=== PATIENT | female | born 1945 | race Caucasian/White ===

== ENCOUNTER 2017-11-09 11:18 | Outpatient (CLI) | payer MEDICARE, OTHER ==
--- NOTE | 2017-11-09 12:04 | XRAY Report ---
Procedure Date: 11/09/2017 Accession Number: [id number] / [id number] Procedure: XR - Sacrum/Coccyx CPT Code: FULL RESULT: EXAM: SACRUM AND COCCYX RADIOGRAPHY EXAM DATE: 11/09/2017 11:44 AM. HISTORY: Persistent pain after fall. COMPARISONS: None. TECHNIQUE: 3 views. FINDINGS: Alignment: Normal. The sacrum and coccyx are normally aligned. Bones: Normal. No fracture or bone lesion. Joints: Minimal bilateral hip joint space narrowing with marginal lipping. Unremarkable SI joints and pubic symphysis. Lower lumbar degenerative changes. Soft Tissues: Small calcified uterine leiomyoma. IMPRESSION: No acute disease. RADIA
--- NOTE | 2017-11-09 12:06 | XRAY Report ---
Procedure Date: 11/09/2017 Accession Number: [id number] / [id number] Procedure: XR - Hip w/Pelvis 2-3V LT CPT Code: FULL RESULT: EXAM: LEFT HIP AND PELVIS RADIOGRAPHY EXAM DATE: 11/09/2017 11:44 AM. HISTORY: Persistent pain after fall. COMPARISONS: None. TECHNIQUE: 1 view of the pelvis and 1 view of the hip. FINDINGS: Bones: Osteopenia. No definite fracture or other bone lesion. Joints: Mild hip joint space narrowing with marginal lipping. Slight widening of left teardrop distance compared to the right, suggesting small joint effusion. Unremarkable SI joints and pubic symphysis. Soft Tissues: Small calcified leiomyoma. IMPRESSION: Mild degenerative changes with possible small left hip joint effusion. RADIA
--- NOTE | 2017-11-09 12:08 | XRAY Report ---
Procedure Date: 11/09/2017 Accession Number: [id number] / [id number] Procedure: XR - Lumbar Spine 2 View CPT Code: FULL RESULT: EXAM: LUMBOSACRAL SPINE RADIOGRAPHY EXAM DATE: 11/09/2017 11:44 AM. CLINICAL HISTORY: Persistent pain after fall. COMPARISONS: None. TECHNIQUE: 3 views. FINDINGS: Alignment: Normal. No spondylolisthesis or scoliosis. Bones: 5 lumbar vertebrae. Slight anterior upper endplate compression of L3 and L4, age unknown. Disks: Disk space narrowing at L4-L5 and perhaps to a lesser degree at L5-S1 and posteriorly at L3-L4. Facets: Degenerative changes at L5-S1. Sacroiliac Joints: Unremarkable. Soft Tissues: Nonspecific bowel gas pattern. IMPRESSION: 1. Slight upper endplate anterior compressions of L3 and L4, age unknown. 2. Degenerative changes including disk space narrowing most prominent at L4-L5. RADIA
== END 2017-11-09 11:19 | disposition home or self-care (01) ==
LOC: DI 11:18
PROVIDERS: ATTEND Nurse Practitioner Family
DX: M53.3 Sacrococcygeal disorders, not elsewhere classified (principal); M51.36 Other intervertebral disc degeneration, lumbar region; M16.12 Unilateral primary osteoarthritis, left hip
CPT/HCPCS: 72100; 72220

== ENCOUNTER 2022-10-10 14:41 | Outpatient (CLI) | payer MEDICARE, OTHER ==
--- NOTE | 2022-10-10 15:00 | XRAY Report ---
PROCEDURE: Foot 3 View LT INDICATIONS: LEFT FOOT PAIN TECHNIQUE: 3 views of the foot were acquired. COMPARISON: None. FINDINGS: Bones: Very subtle linear lucency near the base of the left third and fourth metatarsals. This may r epresent artifact versus possible nondisplaced fracture given history of trauma and pain in this marie on per history. Normal alignment. No suspicious bony lesions. Soft tissues: No suspicious soft tissue calcifications or masses. No significant soft tissue swell ing of the left foot. IMPRESSION: Very subtle lucency involving the base of the left third and fourth metatarsals. This may represent a rtifact of overlapping trabeculation versus possible nondisplaced fracture given history of trauma. R ecommend immobilization and repeat imaging in 10-14 days. Reviewed by: Nishant Skelton MD on 10/10/2022 1:58 PM GLENROY Approved by: Nishant Skelton MD on 10/10/2022 1:58 PM AKREY Station ID: [id number]
== END 2022-10-10 23:59 | disposition home or self-care (01) ==
LOC: DI.S 14:41
PROVIDERS: ATTEND Physician Assistant
DX: M79.672 Pain in left foot (principal)

== ENCOUNTER 2022-10-10 16:02 | Emergency (ER) | payer MEDICARE, OTHER ==
--- NOTE | 2022-10-10 16:48 | ED Physician Documentation ---
PD HPI HEAD INJURY - Stated complaint Stated Complaint: HEAD INJURY - Chief complaint Chief Complaint: Trauma Hd/Nk - History obtained from History obtained from: Patient - History of Present Illness Pain level max: 4 Pain level now: 0 Associated symptoms: No: LOC, AMS, Amnesia, Nausea / vomiting, Neck pain, Paresthesias, Seizures, Ear drainage, Nasal drainage Contributing factors: No: Anticoagulated, Intoxicated - Additional information Additional information: 76-year-old female tripped and fell at home hitting the left side of her head on a washing machince. Initially she had a mild headache but that has since resolved. She is not on blood thinners. Not intoxicated. She went to the walk-in clinic and was sent here for a CT scan of her head. No numbness or tingling. Nothing makes it better or worse. No loss of consciousness. No vomiting. She struck the left pentecostal area. No neck or back pain. No focal neurological deficits. No weakness. Review of Systems Constitutional: denies: Fever, Chills Respiratory: denies: Cough GI: denies: Vomiting, Diarrhea Skin: denies: Rash Musculoskeletal: denies: Neck pain, Back pain Neurologic: denies: Numbness, Confused, Altered mental status PD PAST MEDICAL HISTORY - Past Medical History Past Medical History: Yes Endocrine/Autoimmune: HyPOthyroidism - Present Medications Home Medications: Ambulatory Orders Medication Instructions Recorded Confirmed Levothyroxine [Synthroid] 75 mcg PO QDAC 10/10/22 10/10/22 - Allergies Allergies/Adverse Reactions: Allergies Allergy/AdvReac Type Severity Reaction Status Date / Time No Known Drug Allergies Allergy Verified 10/10/22 16:16 - Social History Does the pt smoke?: No Smoking Status: Never smoker PD ED PE NORMAL - Vitals Vital signs reviewed: Yes - General General: Alert and oriented X 3, No acute distress - HEENT HEENT: PERRL, Moist mucous membranes, Pharynx benign, Other (Mild tenderness to palpation over the left pentecostal/parietal area. No swelling. No scalp hematoma. 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, No motor deficit, No sensory deficit, Normal speech Eye Opening: Spontaneous Motor: Obeys Commands Verbal: Oriented GCS Score: 15 - Psych Psych: Normal mood, Normal affect Results - Vitals Vitals: Vital Signs - 24 hr 10/10/22 10/10/22 16:11 17:01 Temperature 98.1 C H 36.8 C Heart Rate 69 70 Respiratory 14 20 Rate Blood Pressure 110/70 128/88 H O2 Saturation 99 100 Oxygen O2 Source Room air - Rads (name of study) Head CT Relevant Findings:: Final report received, See rad report PD Medical Decision Making - ED course Complexity details: reviewed results, considered differential, d/w patient ED course: Patient status post a ground-level fall today in which she struck her head. No acute findings on head CT. She did strike the left pentecostal, high risk for arterial injury. No evidence of epidural or subdural hemorrhage. Ambulating well. GCS 15. To have her follow-up with her doctor for further care. She was found to have foot fractures at the walk-in clinic and is following up with orthopedics for this. Patient counseled regarding signs and symptoms for which I believe and urgent re-evaluation would be necessary. Patient with good understanding of and agreement to plan and is comfortable going home at this time This document was made in part using voice recognition software. While efforts are made to proofread this document, sound alike and grammatical errors may occur. Departure - Departure Disposition: 01 Home, Self Care Clinical Impression: Closed head injury Qualifiers: Encounter type: initial encounter Qualified Code(s): S09.90XA - Unspecified injury of head, initial encounter Condition: Good Instructions: ED Head Injury Closed Follow-Up: your,doctor as needed [Other] Comments: Your head CT does not show any acute abnormalities today. Please follow-up with orthopedics as instructed earlier for your foot. Please return if you worsen including worsening pain, vomiting or other new or worrisome symptoms. Forms: PCP List Discharge Date/Time: 10/10/22 17:06
--- NOTE | 2022-10-10 16:52 | CT Report ---
PROCEDURE: HEAD WO INDICATIONS: fall, head injury TECHNIQUE: Noncontrast 4.5 mm thick angled axial sections acquired from the foramen magnum to the vertex. For r adiation dose reduction, the following was used: automated exposure control, adjustment of mA and/or kV according to patient size. COMPARISON: None. FINDINGS: Image quality: Excellent. CSF spaces: Basal cisterns are patent. No extra-axial fluid collections. Ventricles are normal in size and shape. Brain: No midline shift. No intracranial masses or hemorrhage. Mild chronic microvascular ischemic changes and age-related parenchymal volume loss. Skull and face: Calvarium and visualized facial bones are intact, without suspicious lesions. Sinuses: Visualized sinuses and mastoids are clear. IMPRESSION: No acute intracranial abnormality. Reviewed by: Mendoza Lugo MD on 10/10/2022 4:51 PM PDT Approved by: Mendoza Lugo MD on 10/10/2022 4:51 PM PDT Station ID: [id number]
[2022-10-10 17:15] VITALS: BP 128/88
== END 2022-10-10 17:06 | disposition home or self-care (01) ==
LOC: ED 16:02
DX: S09.90XA Unspecified injury of head, initial encounter (principal); W01.198A Fall on same level from slipping, tripping and stumbling with subsequent striking against other object, initial encounter; Y92.009 Unspecified place in unspecified non-institutional (private) residence as the place of occurrence of the external cause; E03.9 Hypothyroidism, unspecified; Z79.899 Other long term (current) drug therapy
CPT/HCPCS: 99282; 99284